=== PATIENT | female | born 1940 | race Caucasian/White ===

== ENCOUNTER 2019-01-22 05:54 | Day surgery (SDC) | payer MEDICARE, OTHER ==
[~2019-01-22 05:54] MED LIST: Buffered Lidocaine 1% SYRIN* 1 ML/SYRINGE INTRADERM ONE
[2019-01-22] MEDS ORDERED: Famotidine IV* 10 MG/ML 2 ML (20 mg) IV ONE (06:00)
[2019-01-22] MEDS ORDERED: Lactated Ringers 1000 ML Bag* 1,000 ML IV SCH (06:00)
[2019-01-22] MEDS ORDERED: Silver Nitrate/Potassium Nitr* 1 EA STICK ONE (06:53)
[2019-01-22] MEDS ORDERED: Bupivacaine 0.5% W/EPI SDV* 30 ML VIAL ONE (06:53)
[2019-01-22] MEDS ORDERED: Famotidine IV* 10 MG/ML 2 ML (20 mg) ONE (06:55)
[2019-01-22] MEDS ORDERED: Midazolam* 1 MG/ML 5 ML VIAL (5 MG) ONE (07:31)
[2019-01-22] MEDS ORDERED: fentaNYL* 50 MCG/ML 2 ML VIAL (100 MCG VIAL) ONE (07:31)
[2019-01-22] MEDS ORDERED: Ketorolac INJ* 30 MG/ML 1 ML VIAL ONE (07:52)
[2019-01-22] MEDS ORDERED: Dexamethasone IV* 4 MG/ML 1 ML (4 MG) ONE (07:52)
[2019-01-22] MEDS ORDERED: Propofol* 10 MG/ML 20 ML BTL ONE (07:52)
[2019-01-22] MEDS ORDERED: Ondansetron INJ* 2 MG/ML VIAL ONE (07:52)
[2019-01-22] MEDS ORDERED: DiMENhydriNATE IV* 50 MG/ML VIAL ONE (07:52)
[2019-01-22] MEDS ORDERED: Succinylcholine* 20 MG/ML 10 ML VIAL ONE (07:52)
[2019-01-22] MEDS ORDERED: Lidocaine 2% PF * 5 ML VIAL ONE (07:53)
[2019-01-22] MEDS ORDERED: HYDROmorphone INJ1* 1 MG/ML SYRINGE ONE (08:21)
[2019-01-22] MEDS ORDERED: Acetaminophen TAB* 325 MG PO PRN (08:41)
[2019-01-22] MEDS ORDERED: HYDROmorphone INJ1* 1 MG/ML SYRINGE IV PRN (08:41)
[2019-01-22] MEDS ORDERED: Naloxone* 0.4 MG/ML 1 ML VIAL IV PRN (08:41)
[2019-01-22] MEDS ORDERED: DiMENhydriNATE IV* 50 MG/ML VIAL IV PUSH PRN (08:41)
[2019-01-22 10:46] VITALS: BP 130/66
--- NOTE | 2019-01-22 11:47 | OP ---
OPERATIVE REPORT: DATE OF OPERATION: 01/22/19 DATE OF : 44 SURGEON: Jj Lamb MD CONSTRUCTION CODE ADMINISTRATOR: Dr. Wright. ANESTHESIA: General endotracheal tube. PRE-OP DIAGNOSIS: Family history of ovarian cancer and personal history of breast cancer. POST-OP DIAGNOSIS: Family history of ovarian cancer and personal history of breast cancer. OPERATIVE PROCEDURE: Laparoscopic bilateral salpingo-oophorectomy. ESTIMATED BLOOD LOSS: Minimal. SPECIMENS: Both tubes and ovaries. COMPLICATIONS: None. 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 On laparoscopy, the anterior bladder flap appeared nor mal. The cul-de-sac appeared normal. The uterus was small and atrophic. Both tubes and ovaries martha eared small and atrophic. The liver surface was smooth. DESCRIPTION OF PROCEDURE: The patient was identified, procedure identified as laparoscopy with BSO. The patient was taken to the operating room, prepped and draped in the usual fashion in the dorsal l ithotomy position under general anesthesia. A Turcios and a sponge stick were placed in the vagina. A small infraumbilical incision was made, and a Veress needle was inserted through this. The abdomen w as insufflated to 15 mmHg. The Veress needle was removed and Visiport 10 mm trocar was inserted. Th e trocar was removed and the laparoscope inserted and the above findings were noted. 5 mm trocars we re placed on the abdominal sidewall approximately 8 cm lateral to the umbilicus on the left and on t he right under direct visualization. Using the LigaSure, the infundibulopelvic was grasped and fulgu rated x3 using the LigaSure and carried along the broad ligament until the ovarian ligament was then excised and the ovary was placed into the anterior uterine pocket. The same procedure was carried on the left after identifying the infundibulopelvic on the left side and again cautery was used along t he infundibulopelvic and broad to the level of the ovarian ligament and that ovary was also excised. Both ovaries were placed in an EndoCatch bag and the 5 mm scope was used to visualize it as it came out through the 10 mm umbilical trocar site. Good hemostasis was verified along the levels of the pe dicles and the above findings were evaluated and all instruments were removed from the abdomen. The abdomen was deflated of CO2. The umbilical incision was closed deeply using 2-0 Vicryl and then skin was closed on the umbilicus using 4-0 Vicryl and skin glue. Skin glue was applied to the 5 mm troca r sites and Steri-Strips were applied as these needed reinforcement. Sponge stick was removed from t he vagina. All sponge and instrument counts were correct and the patient returned to the recovery ro in stable condition. [id number]/[facility] #: [id number]
== END 2019-01-22 10:53 | disposition home or self-care (01) ==
LOC: OR 05:54
PROVIDERS: ATTEND Obstetrics & Gynecology
DX: Z80.41 Family history of malignant neoplasm of ovary (principal); Z85.3 Personal history of malignant neoplasm of breast; D64.9 Anemia, unspecified; M81.0 Age-related osteoporosis without current pathological fracture; E78.00 Pure hypercholesterolemia, unspecified
CPT/HCPCS: 88305; A9270-GY; J0330; J1100; J1170; J1240; J1885; J2250; J2405; J2704; J3010

== ENCOUNTER 2019-02-20 11:03 | Emergency (ER) | payer MEDICARE, OTHER ==
--- NOTE | 2019-02-20 11:10 | UC ---
Cardiac HPI - HPI Summary HPI Summary: 78 yo female presents with resolved chest pain, SOB, and diaphoresis. She tells me that yesterday she was mowing the lawn with her push mower. Just as she was finishing and putting the mower in the garage, she developed left chest pain, felt short of breath, and began sweating. She sat down and chest pain immediately resolved, but she continued to feel short of breath for about 5 minutes before this resolved. She did not seek medical treatment and continued about her daily activities. Symptoms did not return. Today she is requesting and EKG due to her symptoms yesterday. Currently she feels great and has no symptoms. Denies fever, SOB, chest pain, abdominal pain, n/v, headache, or dizziness. She admits that a similar episode to the above happened about a year ago - she did not seek medical treatment at that time either. She does not smoke. PMHx of BRCA and Anemia, but no personal or fam hx of cardiac dz. She has never seen a order packer. - History of Current Complaint Stated Complaint: NEEDS EKG Time Seen by Provider: 02/20/19 11:09 Hx Obtained From: Patient Onset/Duration: Sudden Onset Initial Severity: Mild Current Severity: None Pain Intensity: 3 - Allergy/Home Medications Allergies/Adverse Reactions: Allergies Allergy/AdvReac Type Severity Reaction Status Date / Time No Known Allergies Allergy Verified 02/20/19 11:14 PMH/Surg Hx/FS Hx/Imm Hx - Additional Past Medical History Additional PMH: Anemia BRCA - Surgical History Surgical History: Yes Surgery Procedure, Year, and Place: 1986 LEFT BREAST LUMPECTOMY [facility] [place]. 1999 MASTECTOMY LT BREAST [facility] [place]. 2000 LEFT BREAST IMPLANT. 2003 ABD. TO CORRECT LEAK IN VEIN [facility] [place] - Family History Known Family History: Positive: None - Social History Occupation: Retired Lives: With Family Alcohol Use: None Substance Use Type: None Smoking Status (MU): Never Smoked Tobacco Have You Smoked in the Last Year: No Review of Systems All Other Systems Reviewed And Are Negative: Yes Constitutional: Positive: Negative Skin: Positive: Negative Eyes: Positive: Negative ENT: Positive: Negative Respiratory: Positive: Shortness Of Breath - Resolved Cardiovascular: Positive: Chest Pain - Resolved Gastrointestinal: Positive: Negative Genitourinary: Positive: Negative Neurovascular: Positive: Negative Neurological: Positive: Negative Psychological: Positive: Negative Physical Exam - Summary Physical Exam Summary: GENERAL: NAD. WDWN. No pain distress. SKIN: No rashes, sores, lesions, or open wounds. NECK: Supple. Nontender. No lymphadenopathy. CHEST: CTAB. No r/r/w. No accessory muscle use. Breathing comfortably and in no distress. CV: RRR. Without m/r/g. Pulses intact. Cap refill <2seconds ABDOMEN: Soft. NTTP. No distention or guarding. No organomegaly. No CVA tenderness. Bowel sounds present NEURO: Alert. PSYCH: Age appropriate behavior. Triage Information Reviewed: Yes Vital Signs: Vital Signs: Temp Pulse Resp BP Pulse Ox 98.4 F 78 16 163/85 98 02/20/19 11:09 02/20/19 11:02/20/19 11:09 02/20/19 11:02/20/19 11:09 Vital Signs Reviewed: Yes - Assessment/Plan Course Of Treatment: EKbpm NSR with mild ST depression in II, AVL, V4, and V5 - compared to EKG 2004 and no change. I discussed at length with the pt that her symptoms are concerning for angina and, until proven otherwise, should be taken as an emergent condition requiring proper evaluation including monitoring, labwork, and potential consult/imaging. I recommended she seek further medical attention in the ED, but she did not want to do this as she "feels fine now". I discussed with her the risks of ignoring her symptoms such as worsening condition, MA, stroke, and/or . She verbalized understanding, but continued to decline the ED. Given her refusal for the ED today, I will refer her to a order packer as an outpatient. Strongly advised her that if her symptoms return to call 911 or go to the ER immediately - she agreed to this and voiced understanding. - Clinical Impression Provider Diagnosis: FLORES (dyspnea on exertion) Discharge - Sign-Out/Discharge Documenting (check all that apply): Patient Departure All imaging exams completed and their final reports reviewed: No Studies - Discharge Plan Condition: Stable Disposition: HOME Patient Education Materials: Angina (ED) Referrals: Margo Avilez MD [Primary Care Provider] - Su Felton MD [Medical Doctor] - As Soon As Possible Additional Instructions: If you develop a fever, shortness of breath, chest pain, new or worsening symptoms - please call your PCP or go to the ED immediately. Your blood pressure was high at todays visit. Please see your primary provider within 4 weeks for recheck and re-evaluation. 1) As discussed today, I recommend that you go to the ER for a full workup of your chest pain. You have decided you would prefer to see a order packer as an outpatient, in which case we have referred you to Dr. Felton for further evaluation. I strongly recommend that you call their office to schedule an appointment as soon as possible within 1 week. If your symptoms return, please call 911 or go to the ER immediately. - Billing Disposition and Condition Condition: STABLE Disposition: Home
[2019-02-20 11:14] VITALS: BP 163/85
== END 2019-02-20 12:00 | disposition home or self-care (01) ==
LOC: UCEAST 11:03
DX: R06.09 Other forms of dyspnea (principal); R07.89 Other chest pain
CPT/HCPCS: 93005; 99211; G0463

== ENCOUNTER 2022-02-08 08:19 | Observation (INO) ==
[~2022-02-08 08:19] MED LIST changes: +Buffered Lidocaine 1% SYRIN 1 ml INTRADERM ONE; -Buffered Lidocaine 1% SYRIN* 1 ML/SYRINGE INTRADERM ONE; +Dexamethasone IV 4 MG/ML VIAL 1 ml VIAL IV SLOW PU ONE; +Famotidine IV 10 MG/ML 2 ml VIAL (20 mg) IV ONE; +Lactated Ringers 1000 ml BAG 1,000 ML IV SCH
[2022-02-08] MEDS ORDERED: ceFAZolin 2 GM PREMIX 2 GM/50 ML BAG ONE (08:50)
[2022-02-08] MEDS ORDERED: Dexamethasone IV 4 MG/ML VIAL 1 ml VIAL ONE (08:50)
[2022-02-08] MEDS ORDERED: Famotidine IV 10 MG/ML 2 ml VIAL (20 mg) ONE (08:50)
[2022-02-08 09:07] LABS: INR 1.11 (0.86-1.15)
[2022-02-08] MEDS ORDERED: ROPIVACAINE 5 MG/ML 30 ML BTL (0.5%) ONE ×2 (10:21→10:36)
[2022-02-08] MEDS ORDERED: fentaNYL 100 mcg/2 ml 50 MCG/ML VIAL ONE (10:34)
[2022-02-08] MEDS ORDERED: Midazolam 2 mg/2 ml VIAL 1 mg/ml 2 ml VIAL (2 mg) ONE (10:34)
[2022-02-08] MEDS ORDERED: Phenylephrine IV 10 MG/ML 1 ml VIAL ONE (10:42)
[2022-02-08] MEDS ORDERED: Lidocaine 2% PF 5 ML VIAL ONE (10:42)
[2022-02-08] MEDS ORDERED: Ondansetron 4 mg VIAL 2 MG/ML 2 ml VIAL ONE (11:55)
[2022-02-08] MEDS ORDERED: Acetaminophen IV 1 GM/100ML 100 ML IV ONE (11:56)
[2022-02-08] MEDS ORDERED: Magnesium Hydroxide LIQ 30 ML UDC PO PRN ×2 (12:45→14:53)
[2022-02-08] MEDS ORDERED: Ondansetron 4 mg VIAL 2 MG/ML 2 ml VIAL IV PRN ×2 (12:45→14:53)
[2022-02-08] MEDS ORDERED: Morphine 2 MG/ML SYRINGE IV PRN ×2 (12:45→14:53)
[2022-02-08] MEDS ORDERED: Lactulose 30 ml UDC PO PRN ×2 (12:45→14:53)
[2022-02-08] MEDS ORDERED: Ondansetron ODT 4 mg TAB 4 MG TAB PO PRN ×2 (12:45→14:53)
[2022-02-08] MEDS ORDERED: Prochlorperazine 5 mg/ml 2 ml VIAL (10 mg) IV PRN ×2 (12:57→14:53)
[2022-02-08] MEDS ORDERED: Morphine 4 MG/ML VIAL (1 ml) IV PRN ×2 (12:57→14:53)
[2022-02-08] MEDS ORDERED: fentaNYL 100 mcg/2 ml 50 MCG/ML VIAL IV PRN ×2 (12:57→14:53)
[2022-02-08] MEDS ORDERED: Naloxone 0.4 mg VIAL 0.4 mg/ml 1 ml VIAL IV PRN ×2 (12:57→14:55)
[2022-02-08] MEDS ORDERED: ceFAZolin 1 GM ADVAN 1 GM in NS 0.9% 50 ML 50 ML IVPB SCH (13:00)
[2022-02-08] MEDS ORDERED: Lactated Ringers 1000 ml BAG 1,000 ML IV SCH (15:00)
[2022-02-08] MEDS: Lactated Ringers 1000 ml BAG 1,000 ML IV SCH (16:01)
[2022-02-08] MEDS: ceFAZolin VIAL 1 GM in NS 0.9% 50 ML 50 ML IVPB SCH (19:32)
[2022-02-08] MEDS ORDERED: Magnesium Hydroxide LIQ 30 ML UDC PO SCH (21:00)
[2022-02-08] MEDS: Magnesium Hydroxide LIQ 30 ML UDC PO SCH (21:40)
[2022-02-09] MEDS: Lactated Ringers 1000 ml BAG 1,000 ML IV SCH (01:23)
[2022-02-09] MEDS: ceFAZolin VIAL 1 GM in NS 0.9% 50 ML 50 ML IVPB SCH ×2 (03:14→12:07)
[2022-02-09 06:15] LABS: Hematocrit 30 % (35-47); Hemoglobin 10.2 g/dL (12.0-16.0); Mean Corpuscular HGB Conc 34 g/dL (31-36); Mean Corpuscular Hemoglobin 34 pg (27-31); Mean Corpuscular Volume 101 fL (80-97); Mean Platelet Volume 8.1 fL (7.4-10.4); Platelet Count 197 10^3/uL (150-450); Red Blood Count 3.01 10^6 /uL (3.70-4.87); Red Cell Distribution Width 12 % (10-15)
[2022-02-09 06:36] LABS: Calcium 8.3 mg/dL (8.6-10.3); Potassium 4.2 mmol/L (3.5-5.0); eGFR CKD-EPI 77.2 (>60)
[2022-02-09] MEDS: Magnesium Hydroxide LIQ 30 ML UDC PO SCH (08:19)
[2022-02-09] MEDS ORDERED: Vitamin THERAPEUTIC TAB PO SCH ×2 (09:00)
[2022-02-09 10:51] VITALS: BP 116/62
== END 2022-02-09 13:40 | disposition home or self-care (01) ==
LOC: OR 08:19 → SSU 14:54 → INTOOBSV 14:54
PROVIDERS: ADMIT Orthopaedic Surgery Adult Reconstructive Orthopaedic Surgery; ATTEND Orthopaedic Surgery Adult Reconstructive Orthopaedic Surgery